=== PATIENT | male | born 1940 | race Caucasian/White ===

== ENCOUNTER → 2019-06-05 12:22 | Outpatient (CLI) | payer MEDICARE, SELFPAY ==
[2019-06-05 13:56] LABS: Absolute Neutrophil Count 6.8 X10^3/uL (2.0-7.7); Basophil# 0.07 X10^3/uL; Basophil% 0.8 % (0-1); Eosinophil# 0.19 X10^3/uL; Hemoglobin 12.1 g/dL (13.0-16.5); Lymphocyte % 15.1 % (19-41); Mean Corpuscular Hgb 30.1 pg (27.0-32.0); Mean Platelet Vol. 10.4 fl (6.2-12.0); Monocyte# 0.81 X10^3/uL; Monocyte% 8.7 % (0-10); NRBC Flagged by Analyzer 0 % (0-5); Neutrophil # 6.79 X10^3/uL (2.7-7.7); Neutrophil % 73.2 % (47-70); Platelet Count 245 K/mm3 (150-450); RBC Distribution Width CV 12.9 % (11.6-14.6); RBC Distribution Width SD 45.9 fl (35.1-43.9); Red Blood Count 4.02 M/mm3 (4.6-6.2); White Blood Count 9.3 K/mm3 (4.4-11.0)
[2019-06-05 14:18] LABS: ALB/GLOB Ratio 1.3 RATIO (0.9-2.4); AST(SGOT) 16 U/L (15-37); Alanine Aminotransfer ALT/SGPT 27 U/L (16-61); Albumin, Serum 3.9 g/dL (3.2-5.0); Alkaline Phosphatase 64 U/L (45-117); Anion Gap 5 (5-15); BUN 18 mg/dL (7-18); BUN/Creat Ratio 13.7 RATIO (10-20); Calcium,Total 8.7 mg/dL (8.5-10.1); Chloride 101 mmol/L (98-107); Creatinine, Serum 1.31 mg/dL (0.70-1.30); EST Glomerular Filtration Rate 56 mL/min (>60); Est Glom Filt Rate - Afr Amer 68 mL/min (>60); Globulin 3.1 g/dL (2.2-4.2); Glucose 107 mg/dL (74-106); Potassium 4.4 mmol/L (3.5-5.1); Sodium Level 136 mmol/L (136-145)
== END ==
PROVIDERS: Family Provider Family Medicine; PCP Family Medicine; Referring Provider Family Medicine; Visit Provider Family Medicine
DX: I10 Essential (primary) hypertension (principal); G31.83 Neurocognitive disorder with Lewy bodies
CPT/HCPCS: 36415; 80053; 85025

== ENCOUNTER → 2019-10-16 16:36 | Outpatient (CLI) | payer MEDICARE, SELFPAY ==
--- NOTE | 2019-10-16 16:39 | RAD_ITS ---
STUDY: X-RAY - ABDOMEN/PELVIS REASON FOR EXAM: Male, 79 years old. RLQ pain x 4-5 days TECHNIQUE: AP supine and upright views of the abdomen and pelvis. COMPARISON: None. FINDINGS: Normal visualized lung bases. Gas in multiple loops of small bowel in a nonspecific bowel gas pattern. There is no demonstrated free abdominal air. The visualized liver, spleen and kidneys are grossly normal in size and morphology. Normal soft tissue structures. Normal visualized osseous structures. RAD/Abd Inc Decub and/or Erect IMPRESSION: Nonspecific bowel gas pattern. No pneumoperitoneum. Electronically Signed: Jony Handy MD at 17:03 EDT Tel , Service support ,
[2019-10-16 18:35] LABS: ALB/GLOB Ratio 1.3 RATIO (0.9-2.4); AST(SGOT) 16 U/L (15-37); Alanine Aminotransfer ALT/SGPT 30 U/L (16-61); Albumin, Serum 4.1 g/dL (3.2-5.0); Alkaline Phosphatase 53 U/L (45-117); Anion Gap 6 (5-15); BUN 18 mg/dL (7-18); BUN/Creat Ratio 15.1 RATIO (10-20); Chloride 101 mmol/L (98-107); Creatinine, Serum 1.19 mg/dL (0.70-1.30); EST Glomerular Filtration Rate 63 mL/min (>60); Est Glom Filt Rate - Afr Amer 76 mL/min (>60); Globulin 3.2 g/dL (2.2-4.2); Glucose 102 mg/dL (74-106); Potassium 4.2 mmol/L (3.5-5.1); Protein, Total 7.3 g/dL (6.4-8.2); Sodium Level 133 mmol/L (136-145)
== END ==
PROVIDERS: PCP Family Medicine; Referring Provider Family Medicine; Visit Provider Family Medicine
DX: R10.11 Right upper quadrant pain (principal)
CPT/HCPCS: 36415; 74019; 80053

== ENCOUNTER → 2020-06-16 07:19 | Outpatient (CLI) | payer MEDICARE, SELFPAY ==
[2020-06-16 09:50] LABS: Absolute Lymphocyte Count 2.28 X10^3/uL (0.83-4.51); Absolute Neutrophil Count 5.3 X10^3/uL (2.0-7.7); Basophil# 0.07 X10^3/uL; Basophil% 0.8 % (0-1); Eosinophil# 0.35 X10^3/uL; Hematocrit 39.8 % (40-54); Hemoglobin 12.2 g/dL (13.0-16.5); Lymphocyte # 2.28 X10^3/ul (4.0); Lymphocyte % 25.8 % (19-41); Mean Corp Hgb Conc 30.7 g/dL (32-36); Mean Corpuscular Hgb 29.1 pg (27.0-32.0); Mean Platelet Vol. 9.9 fl (6.2-12.0); Monocyte# 0.86 X10^3/uL; Monocyte% 9.7 % (0-10); NRBC Flagged by Analyzer 0 % (0-5); Neutrophil # 5.25 X10^3/uL (2.7-7.7); Neutrophil % 59.4 % (47-70); Platelet Count 251 K/mm3 (150-450); RBC Distribution Width CV 13.2 % (11.6-14.6); RBC Distribution Width SD 45.7 fl (35.1-43.9); Red Blood Count 4.19 M/mm3 (4.6-6.2); White Blood Count 8.8 K/mm3 (4.4-11.0)
[2020-06-16 10:10] LABS: Vitamin D,25 Hydroxy 107.3 ng/mL
[2020-06-16 10:45] LABS: ALB/GLOB Ratio 1.2 RATIO (0.9-2.4); AST(SGOT) 13 U/L (15-37); Alanine Aminotransfer ALT/SGPT 30 U/L (16-61); Albumin, Serum 3.8 g/dL (3.2-5.0); Alkaline Phosphatase 83 U/L (45-117); Anion Gap 6 (5-15); BUN 20 mg/dL (7-18); BUN/Creat Ratio 16.8 RATIO (10-20); Calcium,Total 8.7 mg/dL (8.5-10.1); Chloride 104 mmol/L (98-107); Cholesterol 162 mg/dL (200); Creatinine, Serum 1.19 mg/dL (0.70-1.30); EST Glomerular Filtration Rate 63 mL/min (>60); Est Glom Filt Rate - Afr Amer 76 mL/min (>60); Globulin 3.2 g/dL (2.2-4.2); Glucose 101 mg/dL (74-106); High Density Lipoprotein 94 mg/dL; Potassium 4.2 mmol/L (3.5-5.1); Sodium Level 139 mmol/L (136-145); Triglycerides 31 mg/dL; Very Low Density Lipoprotein 6 mg/dL (5-40)
== END ==
PROVIDERS: PCP Family Medicine; Referring Provider Family Medicine; Visit Provider Family Medicine
DX: I10 Essential (primary) hypertension (principal); E55.9 Vitamin D deficiency, unspecified
CPT/HCPCS: 36415; 80053; 80061; 82306; 85025

== ENCOUNTER → 2020-07-21 09:50 | Outpatient (CLI) | payer MEDICARE, SELFPAY ==
[2020-07-21 12:45] LABS: Absolute Lymphocyte Count 2.21 X10^3/uL (0.83-4.51); Absolute Neutrophil Count 5.5 X10^3/uL (2.0-7.7); Basophil# 0.04 X10^3/uL; Basophil% 0.5 % (0-1); Eosinophil# 0.25 X10^3/uL; Eosinophils% 2.9 % (0-5); Hematocrit 38.6 % (40-54); Hemoglobin 11.6 g/dL (13.0-16.5); Lymphocyte # 2.21 X10^3/ul (4.0); Lymphocyte % 25.2 % (19-41); Mean Corp Hgb Conc 30.1 g/dL (32-36); Mean Corpuscular Hgb 28.9 pg (27.0-32.0); Mean Platelet Vol. 10.3 fl (6.2-12.0); Monocyte# 0.77 X10^3/uL; Monocyte% 8.8 % (0-10); NRBC Flagged by Analyzer 0 % (0-5); Neutrophil # 5.46 X10^3/uL (2.7-7.7); Neutrophil % 62.3 % (47-70); Platelet Count 246 K/mm3 (150-450); RBC Distribution Width CV 13.5 % (11.6-14.6); RBC Distribution Width SD 48.4 fl (35.1-43.9); Red Blood Count 4.02 M/mm3 (4.6-6.2); White Blood Count 8.8 K/mm3 (4.4-11.0)
[2020-07-21 13:53] LABS: ALB/GLOB Ratio 1.1 RATIO (0.9-2.4); AST(SGOT) 12 U/L (15-37); Alanine Aminotransfer ALT/SGPT 31 U/L (16-61); Albumin, Serum 3.6 g/dL (3.2-5.0); Alkaline Phosphatase 55 U/L (45-117); Anion Gap 7 (5-15); BUN 15 mg/dL (7-18); BUN/Creat Ratio 11.7 RATIO (10-20); Calcium,Total 8.9 mg/dL (8.5-10.1); Chloride 101 mmol/L (98-107); Creatinine, Serum 1.28 mg/dL (0.70-1.30); EST Glomerular Filtration Rate 58 mL/min (>60); Est Glom Filt Rate - Afr Amer 70 mL/min (>60); Globulin 3.4 g/dL (2.2-4.2); Glucose 107 mg/dL (74-106); PSA,Total- Diagnostic 3.05 ng/mL (0.0-4.0); Potassium 4.1 mmol/L (3.5-5.1); Sodium Level 137 mmol/L (136-145); Thyroid Stim Hormone (TSH) 2.31 uIU/mL (0.358-3.74)
== END ==
PROVIDERS: PCP Family Medicine; Visit Provider Family Medicine
DX: R53.83 Other fatigue (principal); R10.11 Right upper quadrant pain; R39.198 Other difficulties with micturition
CPT/HCPCS: 36415; 80053; 84153; 84443; 85025

== ENCOUNTER → 2020-08-21 15:15 | Outpatient (CLI) | payer MEDICARE, SELFPAY | PROVIDERS: PCP Family Medicine; Referring Provider Internal Medicine Gastroenterology; Visit Provider Internal Medicine Gastroenterology | DX: Z11.59 Encounter for screening for other viral diseases (principal) | CPT/HCPCS: 87635; C9803; U0005; U0003 ==

== ENCOUNTER → 2021-01-29 08:59 | Outpatient (CLI) | payer MEDICARE, SELFPAY ==
[2021-01-29 12:25] LABS: Absolute Neutrophil Count 4.4 X10^3/uL (2.0-7.7); Basophil# 0.05 X10^3/uL; Basophil% 0.7 % (0-1); Eosinophil# 0.14 X10^3/uL; Hematocrit 35.8 % (40-54); Hemoglobin 11.4 g/dL (13.0-16.5); Lymphocyte % 21.9 % (19-41); Mean Corp Hgb Conc 31.8 g/dL (32-36); Mean Corpuscular Hgb 29.2 pg (27.0-32.0); Mean Corpuscular Volume 91.6 fL (80-94); Mean Platelet Vol. 9.8 fl (6.2-12.0); Monocyte# 0.72 X10^3/uL; Monocyte% 10.5 % (0-10); NRBC Flagged by Analyzer 0 % (0-5); Neutrophil # 4.41 X10^3/uL (2.7-7.7); Neutrophil % 64.6 % (47-70); Platelet Count 298 K/mm3 (150-450); RBC Distribution Width CV 13.2 % (11.6-14.6); RBC Distribution Width SD 44.7 fl (35.1-43.9); Red Blood Count 3.91 M/mm3 (4.6-6.2); White Blood Count 6.8 K/mm3 (4.4-11.0)
[2021-01-29 12:55] LABS: ALB/GLOB Ratio 1.3 RATIO (0.9-2.4); AST(SGOT) 12 U/L (15-37); Alanine Aminotransfer ALT/SGPT 29 U/L (16-61); Albumin, Serum 3.9 g/dL (3.2-5.0); Alkaline Phosphatase 67 U/L (45-117); Anion Gap 8 (5-15); BUN 12 mg/dL (7-18); BUN/Creat Ratio 11.9 RATIO (10-20); Calcium,Total 9.2 mg/dL (8.5-10.1); Chloride 95 mmol/L (98-107); Cholesterol 179 mg/dL (200); Creatinine, Serum 1.01 mg/dL (0.70-1.30); EST Glomerular Filtration Rate 76 mL/min (>60); Est Glom Filt Rate - Afr Amer 92 mL/min (>60); Globulin 3.1 g/dL (2.2-4.2); Glucose 102 mg/dL (74-106); High Density Lipoprotein 99 mg/dL; PSA,Total- Diagnostic 2.25 ng/mL (0.0-4.0); Potassium 4.3 mmol/L (3.5-5.1); Sodium Level 132 mmol/L (136-145); Triglycerides 44 mg/dL; Very Low Density Lipoprotein 9 mg/dL (5-40)
== END ==
PROVIDERS: PCP Family Medicine; Referring Provider Family Medicine; Visit Provider Family Medicine
DX: I10 Essential (primary) hypertension (principal); K21.9 Gastro-esophageal reflux disease without esophagitis; N40.0 Benign prostatic hyperplasia without lower urinary tract symptoms; E87.1 Hypo-osmolality and hyponatremia
CPT/HCPCS: 36415; 80053; 80061; 84153; 85025

== ENCOUNTER → 2021-04-15 16:03 | Outpatient (CLI) | payer MEDICARE, SELFPAY ==
[2021-04-15 17:38] LABS: Hematocrit 34.7 % (40-54); Mean Corp Hgb Conc 31.7 g/dL (32-36); Mean Corpuscular Hgb 29.3 pg (27.0-32.0); Mean Corpuscular Volume 92.5 fL (80-94); Mean Platelet Vol. 9.9 fl (6.2-12.0); Platelet Count 286 K/mm3 (150-450); RBC Distribution Width CV 13.1 % (11.6-14.6); RBC Distribution Width SD 44.3 fl (35.1-43.9); Red Blood Count 3.75 M/mm3 (4.6-6.2); White Blood Count 11.1 K/mm3 (4.4-11.0)
== END ==
PROVIDERS: PCP Nurse Practitioner Family; Referring Provider Nurse Practitioner Family; Visit Provider Nurse Practitioner Family
DX: D64.9 Anemia, unspecified (principal)
CPT/HCPCS: 36415; 85027

== ENCOUNTER 2021-09-17 08:03 | Outpatient (CLI) | payer MEDICARE, SELFPAY ==
[2021-09-17 10:56] LABS: ALB/GLOB Ratio 1.1 RATIO (0.9-2.4); AST(SGOT) 18 U/L (15-37); Alanine Aminotransfer ALT/SGPT 30 U/L (16-61); Albumin, Serum 3.8 g/dL (3.2-5.0); Alkaline Phosphatase 81 U/L (45-117); Anion Gap 5 (5-15); BUN 21 mg/dL (7-18); BUN/Creat Ratio 18.8 RATIO (10-20); Calcium,Total 8.9 mg/dL (8.5-10.1); Chloride 99 mmol/L (98-107); Cholesterol 169 mg/dL (200); Creatinine, Serum 1.12 mg/dL (0.70-1.30); EST Glomerular Filtration Rate 67 mL/min (>60); Est Glom Filt Rate - Afr Amer 81 mL/min (>60); Globulin 3.5 g/dL (2.2-4.2); Glucose 105 mg/dL (74-106); High Density Lipoprotein 91 mg/dL; Potassium 4.1 mmol/L (3.5-5.1); Protein, Total 7.3 g/dL (6.4-8.2); Sodium Level 137 mmol/L (136-145); Triglycerides 39 mg/dL; Very Low Density Lipoprotein 8 mg/dL (5-40)
[2021-09-17 11:06] LABS: Microalbumin,Random Urine 5.1 mg/L (NO RANGE EST.); Microalbumin:Creatinine Ratio 5.4 mg/g CRE (<30 mg/g CRE)
== END 2021-09-17 23:59 | disposition home or self-care (01) ==
PROVIDERS: PCP Nurse Practitioner Family; Referring Provider Nurse Practitioner Family; Visit Provider Nurse Practitioner Family
DX: I10 Essential (primary) hypertension (principal); E78.00 Pure hypercholesterolemia, unspecified
CPT/HCPCS: 36415; 80053; 80061; 82043; 82570

== ENCOUNTER → 2021-11-03 | Outpatient (CLI) | payer MEDICARE, SELFPAY ==
--- NOTE | 2021-11-03 16:55 | RAD_ITS ---
STUDY: X-RAY CHEST REASON FOR EXAM: Male, 81 years old. COPD TECHNIQUE: PA and lateral views of the chest. COMPARISON: None. FINDINGS: There is hyperinflation of the lungs consistent with chronic obstructive lung disease (COPD). There is no demonstrated pleural abnormality. Normal size heart. Normal mediastinum and ezequiel. Normal visualized pulmonary arteries. Normal visualized aortic arch and descending thoracic aorta. Normal visualized thoracic spine. Normal visualized ribs, clavicles, and shoulders. There is no demonstrated abnormality of the visualized soft tissue structures of the upper abdomen. RAD/Chest PA and Lateral IMPRESSION: Emphysema without pneumonia or atelectasis. Electronically Signed: Jony Handy MD at 17:08 EDT ,
[2021-11-03 17:57] LABS: Absolute Lymphocyte Count 1.82 X10^3/uL (0.83-4.51); Absolute Neutrophil Count 5.2 X10^3/uL (2.0-7.7); Basophil# 0.06 X10^3/uL; Basophil% 0.7 % (0-1); Eosinophil# 0.16 X10^3/uL; Hematocrit 37.8 % (40-54); Hemoglobin 12.1 g/dL (13.0-16.5); Lymphocyte # 1.82 X10^3/ul (0.83-4.51); Lymphocyte % 22.3 % (19-41); Mean Corpuscular Hgb 28.2 pg (27.0-32.0); Mean Corpuscular Volume 88.1 fL (80-94); Mean Platelet Vol. 9.8 fl (6.2-12.0); Monocyte# 0.89 X10^3/uL; Monocyte% 10.9 % (0-10); NRBC Flagged by Analyzer 0 % (0-5); Neutrophil # 5.22 X10^3/uL (2.7-7.7); Neutrophil % 63.9 % (47-70); Platelet Count 236 K/mm3 (150-450); RBC Distribution Width CV 14.5 % (11.6-14.6); RBC Distribution Width SD 46.1 fl (35.1-43.9); Red Blood Count 4.29 M/mm3 (4.6-6.2); White Blood Count 8.2 K/mm3 (4.4-11.0)
== END | disposition home or self-care (01) ==
PROVIDERS: PCP Nurse Practitioner Family; Referring Provider Family Medicine; Visit Provider Family Medicine
DX: J44.1 Chronic obstructive pulmonary disease with (acute) exacerbation (principal)
CPT/HCPCS: 36415; 71046; 85025

== ENCOUNTER → 2021-12-07 | Outpatient (CLI) | payer MEDICARE, SELFPAY ==
[2021-12-07 17:44] LABS: Platelet Count 264 K/mm3 (150-450); RET-HE 33.5 pg (30-35); Reticulocyte Count 1.59 % (0.5-1.5)
[2021-12-07 18:41] LABS: Ferritin 14 ng/mL (26-388); Iron 72 ug/dL (65-175); Iron Binding Capacity,Total 360 ug/dL (250-450)
[2021-12-07 20:02] LABS: Vitamin B12 572 pg/mL (211-911)
== END | disposition home or self-care (01) ==
LOC: MFPLAB 16:05
PROVIDERS: PCP Nurse Practitioner Family; Visit Provider Family Medicine
DX: D64.9 Anemia, unspecified (principal)
CPT/HCPCS: 36415; 82607; 82728; 82746; 83540; 83550; 85045

== ENCOUNTER → 2022-10-19 | Outpatient (CLI) | payer MEDICARE, SELFPAY | END | disposition home or self-care (01) | PROVIDERS: PCP Nurse Practitioner Family; Referring Provider Internal Medicine; Visit Provider Internal Medicine | DX: G47.33 Obstructive sleep apnea (adult) (pediatric) (principal) | CPT/HCPCS: 95806 ==

== ENCOUNTER → 2022-10-21 | Outpatient (CLI) | payer MEDICARE, SELFPAY ==
[2022-10-21 17:56] LABS: Absolute Lymphocyte Count 2.03 X10^3/uL (0.83-4.51); Absolute Neutrophil Count 5.8 X10^3/uL (2.0-7.7); Basophil# 0.06 X10^3/uL; Basophil% 0.7 % (0-1); Eosinophil# 0.23 X10^3/uL; Eosinophils% 2.5 % (0-5); Hematocrit 37.4 % (40-54); Hemoglobin 11.9 g/dL (13.0-16.5); Lymphocyte # 2.03 X10^3/ul (0.83-4.51); Lymphocyte % 22.5 % (19-41); Mean Corp Hgb Conc 31.8 g/dL (32-36); Mean Corpuscular Hgb 31.2 pg (27.0-32.0); Mean Corpuscular Volume 98.2 fL (80-94); Mean Platelet Vol. 10.5 fl (6.2-12.0); Monocyte# 0.91 X10^3/uL; Monocyte% 10.1 % (0-10); NRBC Flagged by Analyzer 0 % (0-5); Neutrophil # 5.77 X10^3/uL (2.7-7.7); Neutrophil % 63.8 % (47-70); Platelet Count 273 K/mm3 (150-450); RBC Distribution Width CV 13.6 % (11.6-14.6); Red Blood Count 3.81 M/mm3 (4.6-6.2)
[2022-10-21 18:15] LABS: Vitamin B12 555 pg/mL (211-911); Vitamin D,25 Hydroxy 110.5 ng/mL
[2022-10-21 18:19] LABS: ALB/GLOB Ratio 1.2 RATIO (0.9-2.4); AST(SGOT) 17 U/L (15-37); Alanine Aminotransfer ALT/SGPT 31 U/L (16-61); Albumin, Serum 3.6 g/dL (3.2-5.0); Alkaline Phosphatase 59 U/L (45-117); Anion Gap 3 (5-15); BUN 22 mg/dL (7-18); BUN/Creat Ratio 19.3 RATIO (10-20); Calcium,Total 8.6 mg/dL (8.5-10.1); Chloride 100 mmol/L (98-107); Cholesterol 146 mg/dL (200); Creatinine, Serum 1.14 mg/dL (0.70-1.30); EST Glomerular Filtration Rate 66 mL/min (>60); Est Glom Filt Rate - Afr Amer 79 mL/min (>60); Glucose 99 mg/dL (74-106); High Density Lipoprotein 79 mg/dL; Potassium 4.4 mmol/L (3.5-5.1); Protein, Total 6.6 g/dL (6.4-8.2); Sodium Level 130 mmol/L (136-145); Triglycerides 74 mg/dL; Very Low Density Lipoprotein 15 mg/dL (5-40)
[2022-10-21 18:36] LABS: Microalbumin,Random Urine < 5.0 mg/L (NO RANGE EST.)
== END | disposition home or self-care (01) ==
LOC: MFPLAB 16:11
PROVIDERS: PCP Nurse Practitioner Family; Visit Provider Family Medicine
DX: D64.9 Anemia, unspecified (principal); I10 Essential (primary) hypertension; E78.00 Pure hypercholesterolemia, unspecified; K21.9 Gastro-esophageal reflux disease without esophagitis; E55.9 Vitamin D deficiency, unspecified
CPT/HCPCS: 36415; 80053; 80061; 82043; 82306; 82607; 85025

== ENCOUNTER → 2022-11-16 | Outpatient (CLI) | payer MEDICARE, SELFPAY ==
--- NOTE | 2022-11-16 13:38 | ECHOD_ITS ---
Reason For Study: HEART MURMUR Procedure This was a 2D Doppler, Color Flow transthoracic echocardiogram. Exam performed in department. Left Ventricle Normal LV size. Left ventricular systolic function is normal. The estimated ejection fraction is 70 %. No regional wall motion abnormalities noted. Right Ventricle Normal RV size. Normal systolic function. Atria The left atrium is mildly enlarged. Normal right atrium. Mitral Valve Normal mitral valve. Trivial mitral valve insufficiency. Tricuspid Valve Normal tricuspid valve. Mild to moderate (1-2+) tricuspid valve insufficiency. Pulmonary artery systolic pressure is 50 mmHg. Aortic Valve Trisinus/trileaflet aortic valve. Moderate focal aortic valve calcification. Peak aortic valve gradient 35 mmHg. Mean aortic valve gradient 20 mmHg. Mild to moderate aortic stenosis. Pulmonic Valve Normal pulmonic valve. Great Vessels Normal aortic root. The pulmonary artery is normal size. Normal inferior vena cava. Pericardium/Pleural No pericardial effusion. MMode/2D Measurements & Calculations LVIDd: 5.4 cm IVSd: 1.0 cm LVOT diam: 2.2 cm LVIDs: 3.8 cm LVPWd: 1.4 cm LVOT area: 3.8 cm2 RVDd: 4.2 cm FS: 28.7 % Ao root diam: 3.7 cm LAV(MOD-bp): 63.5 ml LVAd ap4: 32.7 cm2 LAV(MOD-bp) Indexed: 29.6 ml/m2 LVLd ap4: 8.7 cm LAV(MOD-sp2): 53.2 ml EDV(MOD-sp4): 101.8 ml LAV(MOD-sp4): 65.0 ml EDV(sp4-el): 104.4 ml LVAs ap4: 15.8 cm2 LVLs ap4: 7.5 cm ESV(MOD-sp4): 27.9 ml ESV(sp4-el): 28.0 ml EF(MOD-sp4): 72.6 % EF(sp4-el): 73.2 % SV(MOD-sp4): 73.9 ml SV(sp4-el): 76.4 ml LA A4 area: 24.6 cm2 LA dimension(2D): 4.8 cm RA A4 area: 18.5 cm2 Time Measurements MV dec time: 0.17 sec Doppler Measurements & Calculations MV E max luis: 86.5 cm/sec Lat Peak E' Luis: 10.2 cm/sec Med Peak E' Luis: 7.2 cm/sec MV A max luis: 69.4 cm/sec E/E' lat: 8.5 E/E' med: 12.1 MV E/A: 1.2 MV V2 max: 98.5 cm/sec Ao V2 max: 297.6 cm/sec MV max P.9 mmHg MV dec slope: 507.4 cm/sec2 Ao max P.4 mmHg MV V2 mean: 55.8 cm/sec Ao V2 mean: 208.8 cm/sec MV mean P.4 mmHg Ao mean P.9 mmHg MV V2 VTI: 32.3 cm Ao V2 VTI: 75.0 cm AV (velocity ratio): 0.45 MVA(VTI): 4.0 cm2 ALBERTO(I,D): 1.7 cm2 ALBERTO(V,D): 1.5 cm2 LV V1 max: 115.7 cm/sec SV(LVOT): 129.5 ml PA V2 max: 96.5 cm/sec LV V1 max P.4 mmHg PA V2 mean: 69.0 cm/sec LV V1 mean P.3 mmHg LV V1 mean: 86.3 cm/sec LV V1 VTI: 34.0 cm TR max luis: 342.5 cm/sec TR max P.9 mmHg ECHO/Echo Complete Interpretation Summary Normal LV size. Left ventricular systolic function is normal. The estimated ejection fraction is 70 %. Moderate focal aortic valve calcification. Mean aortic valve gradient 20 mmHg. The left atrium is mildly enlarged. Mild to moderate aortic stenosis. Ordering Physician: Rosio Woodard Referring Physician: Rosio Woodard Performed By: Ignacia Johnson RCS
== END | disposition home or self-care (01) ==
LOC: CVS 13:37
PROVIDERS: PCP Nurse Practitioner Family; Referring Provider Family Medicine; Visit Provider Family Medicine
DX: R01.1 Cardiac murmur, unspecified (principal)
CPT/HCPCS: 93306

== ENCOUNTER → 2023-03-15 | Outpatient (CLI) | payer MEDICARE, SELFPAY ==
[2023-03-15 12:19] LABS: Absolute Lymphocyte Count 1.44 X10^3/uL (0.83-4.51); Absolute Neutrophil Count 5.8 X10^3/uL (2.0-7.7); Basophil# 0.07 X10^3/uL; Basophil% 0.9 % (0-1); Eosinophil# 0.13 X10^3/uL; Eosinophils% 1.6 % (0-5); Hematocrit 39.8 % (40-54); Hemoglobin 12.4 g/dL (13.0-16.5); Lymphocyte # 1.44 X10^3/ul (0.83-4.51); Lymphocyte % 17.8 % (19-41); Mean Corp Hgb Conc 31.2 g/dL (32-36); Mean Corpuscular Hgb 31.3 pg (27.0-32.0); Mean Corpuscular Volume 100.5 fL (80-94); Monocyte# 0.63 X10^3/uL; Monocyte% 7.8 % (0-10); NRBC Flagged by Analyzer 0 % (0-5); Neutrophil # 5.81 X10^3/uL (2.7-7.7); Neutrophil % 71.5 % (47-70); Platelet Count 248 K/mm3 (150-450); RBC Distribution Width CV 12.6 % (11.6-14.6); RBC Distribution Width SD 46.6 fl (35.1-43.9); RET-HE 34.3 pg (30-35); Red Blood Count 3.96 M/mm3 (4.6-6.2); Reticulocyte Count 2.05 % (0.5-1.5); White Blood Count 8.1 K/mm3 (4.4-11.0)
[2023-03-15 12:37] LABS: ALB/GLOB Ratio 1.2 RATIO (0.9-2.4); AST(SGOT) 17 U/L (15-37); Alanine Aminotransfer ALT/SGPT 33 U/L (16-61); Albumin, Serum 3.8 g/dL (3.2-5.0); Alkaline Phosphatase 68 U/L (45-117); Anion Gap 5 (5-15); BUN 11 mg/dL (7-18); Calcium,Total 9.1 mg/dL (8.5-10.1); Chloride 101 mmol/L (98-107); EST Glomerular Filtration Rate 68 mL/min (>60); Est Glom Filt Rate - Afr Amer 83 mL/min (>60); Ferritin 67 ng/mL (26-388); Globulin 3.2 g/dL (2.2-4.2); Glucose 112 mg/dL (74-106); Potassium 4.5 mmol/L (3.5-5.1); Sodium Level 137 mmol/L (136-145)
== END | disposition home or self-care (01) ==
LOC: MTLAB 10:00
PROVIDERS: PCP Family Medicine; Referring Provider Family Medicine; Visit Provider Family Medicine
DX: D64.9 Anemia, unspecified (principal); E87.1 Hypo-osmolality and hyponatremia
CPT/HCPCS: 36415; 80053; 82728; 85025; 85045

== ENCOUNTER 2023-10-06 16:22 | Outpatient (CLI) | payer MEDICARE, SELFPAY ==
[2023-10-06 17:52] LABS: Absolute Lymphocyte Count 1.96 X10^3/uL (0.83-4.51); Basophil# 0.07 X10^3/uL; Basophil% 0.9 % (0-1); Eosinophil# 0.27 X10^3/uL; Eosinophils% 3.3 % (0-5); Hematocrit 37.5 % (40-54); Hemoglobin 11.9 g/dL (13.0-16.5); Lymphocyte # 1.96 X10^3/ul (0.83-4.51); Mean Corp Hgb Conc 31.7 g/dL (32-36); Mean Corpuscular Hgb 30.4 pg (27.0-32.0); Mean Corpuscular Volume 95.9 fL (80-94); Mean Platelet Vol. 10.1 fl (6.2-12.0); Monocyte# 0.86 X10^3/uL; Monocyte% 10.6 % (0-10); NRBC Flagged by Analyzer 0 % (0-5); Neutrophil # 4.96 X10^3/uL (2.7-7.7); Neutrophil % 60.8 % (47-70); Platelet Count 251 K/mm3 (150-450); RBC Distribution Width CV 13.2 % (11.6-14.6); RBC Distribution Width SD 46.7 fl (35.1-43.9); Red Blood Count 3.91 M/mm3 (4.6-6.2); White Blood Count 8.2 K/mm3 (4.4-11.0)
[2023-10-06 18:42] LABS: ALB/GLOB Ratio 1.2 RATIO (0.9-2.4); AST(SGOT) 14 U/L (15-37); Alanine Aminotransfer ALT/SGPT 29 U/L (16-61); Albumin, Serum 3.8 g/dL (3.2-5.0); Alkaline Phosphatase 60 U/L (45-117); Anion Gap 5 (5-15); BUN 19 mg/dL (7-18); BUN/Creat Ratio 16.2 RATIO (10-20); Calcium,Total 8.9 mg/dL (8.5-10.1); Chloride 99 mmol/L (98-107); Cholesterol 186 mg/dL (200); Creatinine, Serum 1.17 mg/dL (0.70-1.30); EST Glomerular Filtration Rate 63 mL/min (>60); Est Glom Filt Rate - Afr Amer 77 mL/min (>60); Globulin 3.2 g/dL (2.2-4.2); Glucose 101 mg/dL (74-106); High Density Lipoprotein 98 mg/dL; Potassium 4.7 mmol/L (3.5-5.1); Sodium Level 133 mmol/L (136-145); Thyroid Stim Hormone (TSH) 1.88 uIU/mL (0.358-3.74); Triglycerides 52 mg/dL; Very Low Density Lipoprotein 10 mg/dL (5-40)
== END 2023-10-06 23:59 | disposition home or self-care (01) ==
LOC: MFPLAB 16:22
PROVIDERS: PCP Family Medicine; Visit Provider Family Medicine
DX: R09.02 Hypoxemia (principal); D64.9 Anemia, unspecified
CPT/HCPCS: 36415; 80053; 80061; 84443; 85025

== ENCOUNTER 2023-10-27 10:51 | Day surgery (SDC) | payer MEDICARE, SELFPAY ==
--- NOTE | 2023-10-27 | IMM_PTH ---
PATIENT: LOREN LEAVITT LOC: [facility] U#:[id number] AGE/SX: 83/M ROOM: RE10/27/[address]: Dr. Nancy Iniguez MD : 1940 BED: DIS: 10/27/2023 SPEC #: [id number] RECD: 10/31/23 11:19 STATUS: BETZY REQ #: [id number] VICTOR M: 10/27/23 00:[address]: Nancy Iniguez DEPT: IMMUNOHISTOCHEMISTRY RECD BY: Adam Delgado ENTERED: 10/31/23 11:21 SP TYPE: IMMUNO OTHR DR: Baltazar Westbrook MD Tissues: Scalp, NOS Procedures: CK5-6 (add) KI-67 (add) P53 (add) MELAN-A (add) P40 (add) Vimentin (initial) S-100 (add) PHYSICIAN & INSTITUTION [place] [address] SPECIMEN INFORMATION: Tissue Source: Neoplasm of left anterior scalp Clinical Info: Neoplasm of uncertain behavior of scalp Specimen Number: [id number] CPT code: 25045,14406l9 METHODOLOGY: Deparaffinized sections of prefer/formalin-fixed tissue or PAP/DQ stained slides are incubated with monoclonal/polyclonal antibodies/oligonucleotide probes. Localization is made via biotin free immunoperoxidase method. Appropriate controls are performed and reacted as expected. Results on target cell population are indicated in the following table: RESULTS: ANTIBODY / CLONE RESULT Block 1 Vimentin (V9) positive Melan A (A103) positive S-100 (4C4.9) negative CK5-6 (D5 & 1684) negative P40 (BC28) negative P53 (DO-7) negative (null pattern) Ki-67 (30-9) positive, moderate These tests were developed and their performance characteristics determined by [facility]. They may not have been cleared or approved by the U.S. Food and Drug Administration. The FDA has determined that such clearance or approval is not necessary. The above immunohistochemical/dualISH markers are ordered and reviewed by the Pathologist. INTERPRETATION: Left anterior scalp lesion, excision: Malignant melanoma. See comment. BARRY/ 11/11/2023 COMMENT: The specimen is sent to [facility] for expert opinion, reviewed by Dr. Bell and the above diagnosis is rendered. The complete report is viewable in the patient's EMR.
[2023-10-27 11:27] VITALS: BP 128/57; PULSE 63; RESP 18; TEMP 37; O2SAT 91; BMI 28.4
--- NOTE | 2023-10-27 12:15 | PCM.HP.BLA ---
History and Physical Date of Admission: 10/27/23 The patient is examined and there are no changes to the H&P dated 10/18/2023. He presents with a neoplasm of his left anterior scalp which will be partially excised to obtain a diagnosis prior to definitive treatment. Informed consent was obtained. Assessment & Plan Assessment/Plan (1) Neoplasm of uncertain behavior of scalp: PLAN: Plan For partial excision neoplasm of scalp for diagnosis.
[2023-10-27 12:33] VITALS: BP 102/88; BP 138/65; O2SAT 100; O2SAT 93; O2SAT 94; O2SAT 97
--- NOTE | 2023-10-27 13:00 | LES_PTH ---
PATIENT: LOREN LEAVITT LOC: [facility] [place] U#:[id number] AGE/SX: 83/M ROOM: RE10/27/[address]: Dr. Nancy Iniguez MD : 1940 BED: DIS: 10/27/2023 SPEC #: [id number] RECD: 10/27/23 13:55 STATUS: BETZY MIRANDA #: [id number] VICTOR M: 10/27/23 13:[address]: Nancy Iniguez DEPT: SURGICAL PATHOLOGY RECD BY: Mari Olivarez ENTERED: 10/28/23 10:05 SP TYPE: Lesion OTHR DR: Baltazar Westbrook MD Tissues: Skin of scalp, NOS Procedures: [facility] Consultation (on slides) Surgery Specimen Level IV HEADER OPERATION: Excision lesion scalp 3cm PRE-OP DIAGNOSIS: Neoplasm of uncertain behavior of scalp TISSUE SUBMITTED: Neoplasm of left anterior scalp MICROSCOPIC DIAGNOSIS Left anterior scalp lesion, excisional biopsy: Malignant melanoma. See cancer summary in the comment section. SJ/mr 11/11/2023 COMMENT CANCER SUMMARY: Histologic type: Nodular Breslow thickness: 4.2mm Ulceration: Present Mitoses/mm: >10mm Tumor infiltrating lymphocytes: Present, non-brisk Regression: Present Perineurial invasion: Absent Vascular invasion: Absent Satellite nodule: Absent Margin status: Lateral: Positive Deep: Negative The specimen is sent to [facility] for expert opinion, reviewed by Dr. Bell and the above diagnosis is rendered. The complete report is viewable in the patient's EMR. Immunohistochemistry ([id number]) supports the above diagnosis. Case has been reviewed in consultation with Dr. Fritz who concurs with the above diagnosis. IDC:AM MICROSCOPIC DESCRIPTION Slides are reviewed. GROSS DESCRIPTION Received in fixative is one container labeled with the patient's name and designated Neoplasm of left anterior scalp. The specimen consists of an unoriented ellipse of light crum skin measuring 4.3 x 1.6 and a depth of excision measuring 0.5cm. The cutaneous surface contains a firm plaque like white-crum lesion measuring 1.3 x 1.0 x 0.2cm. The specimen is inked, serially sectioned and submitted entirely in two cassettes. AM/mr 10/28/23 TC:0 CPT:20259
[2023-10-27] MEDS: Bacitracin 500 UNITS/GM PACKET (13:20)
[2023-10-27] MEDS: Lidocaine 1% /Epi 1:100 9 ML, Sodium Bicarbonate 1 MEQ OPERA.SITE (13:25)
--- NOTE | 2023-10-27 13:34 | DCINST_ITS ---
Discharge Instructions Dressing / Incision Additional Dressing/Incision Instructions:: Keep your back elevated (recliner position) for the next 4-5 days to prevent swelling and bleeding. Take the oral antibiotic (Keflex) 2 x a day until finished. May shower over the area but do not scrub. Apply a thin layer of antibiotic ointment (like neosporin, bacitracin, or triple antibiotic ointment) once a day to the site. Follow Up Care Please Follow Up With: Nancy Iniguez MD When: in 1 week Test Results: Test results from this visit will be discussed in further detail at your follow- up appointment, if applicable. Discharge Plan Admission Attending Provider: Nancy Iniguez Primary Care Provider: Baltazar Westbrook Discharge Orders/Prescriptions Prescriptions: New cephalexin 500 mg capsule 500 mg PO BID 7 Days Qty: 14 0RF No Action albuterol sulfate 90 mcg/actuation HFA aerosol inhaler 2 puff inhalation Q6H PRN (Reason: wheezing) atorvastatin [Lipitor] 80 mg tablet 80 mg PO DAILY losartan 100 mg tablet 100 mg PO DAILY donepezil 10 mg tablet 10 mg PO DAILY celecoxib 100 mg capsule 100 mg PO DAILY metoclopramide HCl 5 mg tablet 5 mg PO QACHS fluticasone propion-salmeterol 250-50 mcg/dose blister with device 1 inh inhalation BID esomeprazole magnesium 40 mg capsule,delayed release(DR/EC) 40 mg PO DAILY memantine 10 mg tablet 10 mg PO BID gabapentin 100 mg capsule 100 mg PO BID diltiazem HCl [DILT-XR] 180 mg capsule,ext.rel 24h degradable 180 mg PO DAILY doxazosin 4 mg tablet 4 mg PO DAILY buspirone 5 mg tablet 5 mg PO BID cholecalciferol (vitamin D3) 125 mcg (5,000 unit) capsule 125 mcg PO QWEEK dicyclomine 20 mg tablet 20 mg PO TID PRN (Reason: cramps) sucralfate 1 gram tablet 1 g PO TID azelastine 205.5 mcg (0.15 %) spray,non-aerosol 1 spray intranasal BID Rx Instructions: administer into each nostril famotidine 40 mg tablet 40 mg PO DAILY magnesium oxide 400 mg magnesium capsule 400 mg PO DAILY ferrous sulfate [Feosol] 325 mg (65 mg iron) tablet 325 mg PO DAILY ascorbate calcium (vitamin C) 500 mg tablet 500 mg PO DAILY multivitamin Tablet 1 tab PO DAILY guaifenesin [Mucinex] 600 mg tablet extended release 12hr 600 mg PO Q12H melatonin 1 mg tablet 1 mg PO HS PRN (Reason: sleep aid) omega 0-dkx-ddn-fish oil [Fish Oil] 1,200 (144-216) mg capsule PO DAILY aspirin 81 mg tablet,chewable 81 mg PO DAILY multivitamin [Daily Multi-Vitamin] Tablet 1 tab PO DAILY montelukast 10 mg tablet 10 mg PO DAILY Referrals / Follow Up: Baltazar Westbrook MD [Primary Care Provider] - Disposition Disposition (needs filled in before D/C Order can be placed): Home, Self Care
--- NOTE | 2023-10-27 13:40 | PCM.OPRPT ---
Problems Associated Problem List Diagnoses (1) Neoplasm of uncertain behavior of scalp: Report of Operation Date of Procedure: 10/27/23 Pre-Operative Diagnosis: Neoplasm of uncertain behavior of left anterior scalp Post-Operative Diagnosis: Same Surgery/Procedure Performed:: Partial excision neoplasm scalp for biopsy (6.0 cm) Surgeon: Nancy Iniguez Type of Anesthesia: Local Specimen's removed: Partial excision neoplasm scalp Estimated Blood Loss (mL): 10 cc Description of Procedure: Patient presents with a several month history of a neoplasm of his scalp. He states he first became aware of this in April last year. The patient has long dense hair on his scalp which prevented clear visualization of the neoplasm. Because of the size of the neoplasm, we will proceed with a partial excision for with submission for pathologic evaluation. He is aware that further surgery will likely be needed. The patient's has trim some of the hair over top of the neoplasm which reveals this to be even larger than was initially suspected. Patient was brought to the operating room and placed on the operating room table in the supine position. The scalp was prepped and draped in the usual sterile fashion. We initially began with designing an elliptical and excision around a prominent nodule of the neoplasm edge. 1% Xylocaine with epinephrine buffered with sodium bicarb is injected. Following this, we proceeded with excision of the area. Moderate amount of bleeding is encountered and a fixation suture of Vicryl was used to control this. The specimen is passed off the operative field to be sent to pathology. The wound is closed initially with interrupted silk suture. Following this, running chromic suture is used to approximate the skin edge. The area is cleaned with peroxide. Antibiotic ointment is applied. He tolerated the procedure well was taken to the recovery area in an awake and stable condition. Needle and sponge counts are correct. Complications None Admit VTE Documentation VTE Mechan Device Prophylaxis: None Reason prophylaxis not ordered:: Treatment Not Indicated
== END 2023-10-27 13:59 | disposition home or self-care (01) ==
LOC: SDC 10:58 → AC 11:00
PROVIDERS: PCP Family Medicine; Visit Provider Plastic Surgery
PROC: (CPT 11626; principal; 2023-10-27 12:45)
DX: C43.4 Malignant melanoma of scalp and neck (principal)
CPT/HCPCS: 11626; 88305; 88325; 88341; 88342

== ENCOUNTER 2023-12-08 09:40 | Day surgery (SDC) | payer MEDICARE, SELFPAY ==
--- NOTE | 2023-12-08 | IMM_PTH ---
PATIENT: LOREN LEAVITT LOC: [facility] [place] U#:[id number] AGE/SX: 83/M ROOM: RE12/08/[address]: Dr. Nancy Iniguez MD : 1940 BED: DIS: 12/08/2023 SPEC #: [id number] RECD: 12/09/23 12:03 STATUS: BETZY REQ #: [id number] VICTOR M: 12/08/23 00:[address]: Nancy Iniguez DEPT: IMMUNOHISTOCHEMISTRY RECD BY: Adam Delgado ENTERED: 12/09/23 12:05 SP TYPE: IMMUNO OTHR DR: Baltazar Westbrook MD Tissues: A - Skin of back, NOS B - Skin of back, NOS C - Skin of arm Procedures: CD31 (add) CK5-6 (add) KI-67 (add) P53 (add) FACTOR VIII (add) Pankeratin (initial) Pankeratin (add) MELAN-A (add) P40 (add) S-100 (add) PHYSICIAN & [address] [address] SPECIMEN INFORMATION: Tissue Source: A- Lower back lesion, B- Upper back lesion, C- Right shoulder lesion Clinical Info: Neoplasm of uncertain behavior of connective and other soft tissue, neoplasm of uncertain behavior of skin of back Specimen Number: [id number] A, B, C CPT code: 28159t2,69390y16 METHODOLOGY: Deparaffinized sections of prefer/formalin-fixed tissue or PAP/DQ stained slides are incubated with monoclonal/polyclonal antibodies/oligonucleotide probes. Localization is made via biotin free immunoperoxidase method. Appropriate controls are performed and reacted as expected. Results on target cell population are indicated in the following table: RESULTS: ANTIBODY / CLONE RESULT Block A AE1-3 (AE1/AE3/PCK26) negative CD31 (ABEL/70A) negative Factor VIII (R Ag) negative Melan A (A103) positive S-100 (4C4.9) positive CK5-6 (D5 & 1684) negative P40 (BC28) negative P53 (DO-7) negative, wild type pattern Ki-67 (30-9) positive, 15% Block B AE1-3 (AE1/AE3/PCK26) negative CD31 (ABEL/70A) negative Factor VIII (R Ag) negative Melan A (A103) positive S-100 (4C4.9) positive CK5-6 (D5 & 1684) negative P40 (BC28) negative P53 (DO-7) positive, wild type Ki-67 (30-9) positive, 20% Block C AE1-3 (AE1/AE3/PCK26) negative CD31 (ABEL/70A) negative Factor VIII (R Ag) negative Melan A (A103) positive S-100 (4C4.9) positive CK5-6 (D5 & 1684) negative P40 (BC28) negative P53 (DO-7) positive, wild type Ki-67 (30-9) positive, 5% These tests were developed and their performance characteristics determined by [facility]. They may not have been cleared or approved by the U.S. Food and Drug Administration. The FDA has determined that such clearance or approval is not necessary. The above immunohistochemical/dualISH markers are ordered by Dr. Larry Fritz and reviewed by the Pathologist by Dr. Larry Fritz. INTERPRETATION: A. Skin lesion of lower back, excision: Malignant melanoma. See comment. B. Skin lesion of upper back, excision: Malignant melanoma. See comment. C. Skin lesion of right shoulder, excision: Malignant melanoma. See comment. AM/mr 12/12/2023 The specimens are sent to [facility] for expert opinion and reviewed by Dr. Larry Harris and above diagnosis is rendered.
[2023-12-08 10:00] VITALS: BP 139/82; PULSE 64; RESP 16; TEMP 36.1; O2SAT 98; BMI 28.7
--- NOTE | 2023-12-08 11:15 | LES_PTH ---
PATIENT: LOREN LEAVITT LOC: [facility] [place] U#:[id number] AGE/SX: 83/M ROOM: RE12/08/[address]: Dr. Nancy Iniguez MD : 1940 BED: DIS: 12/08/2023 SPEC #: [id number] RECD: 12/08/23 13:26 STATUS: BETZY MIRANDA #: [id number] VICTOR M: 12/08/23 11:[address]: Nancy Iniguez DEPT: SURGICAL PATHOLOGY RECD BY: Radha Scott ENTERED: 12/08/23 13:50 SP TYPE: Lesion OTHR DR: Baltazar Westbrook MD Tissues: A - Skin of back, NOS B - Skin of back, NOS C - Skin of upper extremity and shoulder Procedures: Surgery Specimen Level IV HEADER OPERATION: Excision lesions back x2 (2.5, 1.5) excision subcutaneous PRE-OP DIAGNOSIS: Neoplasm of uncertain behavior of connective and other soft tissue, Neoplasm of uncertain behavior of skin of back TISSUE SUBMITTED: A- Lower back lesion-recent history of melanoma, B- Upper back lesion- recent history of melanoma , C- Right shoulder lesion MICROSCOPIC DIAGNOSIS A. Skin lesion of lower back, biopsy: Malignant melanoma. See comment. B. Skin lesion of upper back, biopsy: Malignant melanoma. See comment. C. Lesion of right shoulder, biopsy: Malignant melanoma present predominantly in the subcutis. See comment. AM/mr 12/09/2023 /mr 01/10/2024 COMMENT A. Immunohistochemistry ([id number]) supports the above diagnosis. The specimen is sent to [facility] for expert opinion, reviewed by Dr. Bell and commented that he favors a metastatic lesion over primary nodular melanoma of 2.4mm in thickness, given the previous history (S2) left anterior scalp lesion, excisional biopsy with diagnosis of malignant melanoma.. Lesion shows overlying ulceration and mitoses of 8/mm2. Inked margins are free at the planes of section examined. The complete report is viewable in the patient's EMR. B. Immunohistochemistry ([id number]) supports the above diagnosis. The specimen is sent to [facility] for expert opinion, reviewed by Dr. Bell and he commented the lesion appears to be arising in association with an intradermal nevus. A primary malignant melanoma of 0.7mm cannot be entirely excluded. No evidence of ulceration, perineural or perivascular invasion is identified. Occasional mitotic figures are identified (1/mm2) inked margins are free at the planes of section examined. The complete report is viewable in the patient's EMR. C. Immunohistochemistry ([id number]) supports the above diagnosis. [facility], reviewed by Dr. Bell and the above diagnosis is rendered. Dr. Bell commented that findings most compatible with a metastatic melanoma. Lesion measures 7.0mm in thickness as well as maximum dimension, measured microscopically. KI67 reveal an increase in proliferation index. The complete report is viewable in the patient's EMR. Case has been reviewed in consultation with Dr. Lala who concurs with the above diagnosis. IDC:AM MICROSCOPIC DESCRIPTION Slides are reviewed. GROSS DESCRIPTION A. Received in fixative is one container labeled with the patient's name and designated Lower back lesion. The specimen consists of a crum white skin ellipse measuring 2.0 x 1.1 cm and up to 0.4cm in thickness. There is a raised brown lesion on the surface measuring 1.0 x 1.0cm. The specimen is inked, serially sectioned and submitted entirely in one cassette. B. Received in fixative is one container labeled with the patient's name and designated Upper back lesion. The specimen consists of a crum white skin ellipse measuring 1.0 x 0.5cm and up to 0.3cm in thickness. There is a dark brown round lesion on the surface measuring 0.3cm in diameter. The specimen is inked, serially sectioned and submitted entirely in one cassette. C. Received in fixative is one container labeled with the patient's name and designated Right shoulder lesion. The specimen consists of a crum white skin ellipse measuring 1.7 x 0.7cm and up to 0.8cm in thickness. The dark brown lesion in the deeper tissue measuring 0.6cm in greatest dimension. The specimen is inked, serially section and submitted entirely in one cassette. BARRY/ 12/08/2023 TC:0 CPT:15056d9
--- NOTE | 2023-12-08 11:17 | PCM.HP.BLA ---
History and Physical Date of Admission: 12/08/23 The patient is examined and there are no changes to the H&P dated 12/07/2023. He presents for excisional biopsy of several lesions of his back. Informed consent was obtained prior to proceeding. Assessment & Plan Assessment/Plan (1) Neoplasm of uncertain behavior of connective and other soft tissue: (2) Neoplasm of uncertain behavior of skin of back: PLAN: Plan Patient for excision lesions of the back to establish diagnosis.
[2023-12-08 11:38] VITALS: BP 155/101; O2SAT 100
[2023-12-08] MEDS: Lidocaine 1% /Epi 1:100 9 ML, Sodium Bicarbonate 1 MEQ OPERA.SITE (12:06)
[2023-12-08] MEDS: Bacitracin 500 UNITS/GM PACKET (12:46)
--- NOTE | 2023-12-08 12:52 | EX.PCM.DISCH ---
Discharge Instructions Dressing / Incision Additional Dressing/Incision Instructions:: Change the dressings on the back daily. Apply a thin layer of antibiotic ointment to the sites. Leave the dressing intact on the right shoulder. If it should fall off, replace it with a Band-Aid. Take the oral antibiotic (Keflex) 2 times a day until finished. Follow Up Care Please Follow Up With: Nancy Iniguez MD When: In 1 to 2 weeks Test Results: Test results from this visit will be discussed in further detail at your follow-up appointment, if applicable. Discharge Plan Admission Attending Provider: Nancy Iniguez Primary Care Provider: Baltazar Westbrook Instructions Print Language: Bruneian Discharge Orders/Prescriptions Prescriptions: New cephalexin 500 mg capsule 500 mg PO BID 7 Days Qty: 14 0RF No Action albuterol sulfate 90 mcg/actuation HFA aerosol inhaler 2 puff inhalation Q6H PRN (Reason: wheezing) atorvastatin [Lipitor] 80 mg tablet 80 mg PO DAILY losartan 100 mg tablet 100 mg PO DAILY donepezil 10 mg tablet 10 mg PO DAILY celecoxib 100 mg capsule 100 mg PO DAILY metoclopramide HCl 5 mg tablet 5 mg PO QACHS fluticasone propion-salmeterol 250-50 mcg/dose blister with device 1 inh inhalation BID esomeprazole magnesium 40 mg capsule,delayed release(DR/EC) 40 mg PO DAILY memantine 10 mg tablet 10 mg PO BID gabapentin 100 mg capsule 100 mg PO BID diltiazem HCl [DILT-XR] 180 mg capsule,ext.rel 24h degradable 180 mg PO DAILY doxazosin 4 mg tablet 4 mg PO DAILY buspirone 5 mg tablet 5 mg PO BID cholecalciferol (vitamin D3) 125 mcg (5,000 unit) capsule 125 mcg PO QWEEK dicyclomine 20 mg tablet 20 mg PO TID PRN (Reason: cramps) sucralfate 1 gram tablet 1 g PO TID azelastine 205.5 mcg (0.15 %) spray,non-aerosol 1 spray intranasal BID Rx Instructions: administer into each nostril famotidine 40 mg tablet 40 mg PO DAILY magnesium oxide 400 mg magnesium capsule 400 mg PO DAILY ferrous sulfate [Feosol] 325 mg (65 mg iron) tablet 325 mg PO DAILY ascorbate calcium (vitamin C) 500 mg tablet 500 mg PO DAILY multivitamin Tablet 1 tab PO DAILY guaifenesin [Mucinex] 600 mg tablet extended release 12hr 600 mg PO Q12H melatonin 1 mg tablet 1 mg PO HS PRN (Reason: sleep aid) omega 5-jwo-fof-fish oil [Fish Oil] 1,200 (144-216) mg capsule 1 cap PO DAILY aspirin 81 mg tablet,chewable 81 mg PO DAILY multivitamin [Daily Multi-Vitamin] Tablet 1 tab PO DAILY montelukast 10 mg tablet 10 mg PO DAILY Referrals / Follow Up: Baltazar Westbrook MD [Primary Care Provider] - Disposition Disposition (needs filled in before D/C Order can be placed): Home, Self Care
--- NOTE | 2023-12-08 12:54 | OP.PCM_ITS ---
Problems Associated Problem List Diagnoses (1) Malignant melanoma: (2) Neoplasm of uncertain behavior of connective and other soft tissue: (3) Neoplasm of uncertain behavior of skin of back: Report of Operation Date of Procedure: 12/08/23 Pre-Operative Diagnosis: Pigmented lesions of the skin of back x 2, subcutaneous nodule right shoulder; recent diagnosis of malignant melanoma scalp Post-Operative Diagnosis: Same Surgery/Procedure Performed:: Excision lesion of lower back (3.0 cm) with intermediate closure; excision lesion upper back (1.5 cm); excision subcutaneous nodule right shoulder (2.5 cm) Surgeon: Nancy Iniguez Type of Anesthesia: Local Specimen's removed: As above Estimated Blood Loss (mL): Minimal Description of Procedure: The patient presents today for excisional biopsy of some lesions of his back and shoulder. He has a recent history of a malignant melanoma of his scalp. He was seen at the [facility] where biopsy of new lesions of his back were identified and biopsy requested. The patient is brought to the operating room and placed on the operating room table in a left lateral decubitus position. The back and right shoulder are prepped and draped in the usual sterile fashion. 1% Xylocaine with epinephrine buffered with sodium bicarb was used for local anesthetic. Following this, we excised the ulcerated lesion of the lower back. This was passed off the operative field. Hemostasis is controlled with cautery. The incision is then closed in layers using Vicryl suture in the subcutaneous tissue and dermis. Skin edges are approximated with a running chromic suture. We then directed our attention to the lesion of the upper back. After this is anesthetized with 1% Xylocaine with epinephrine, it is excised and passed off the operative field to be sent to pathology. Hemostasis is controlled with cautery. The incisions then closed with a running chromic suture. The sites are dressed with antibiotic ointment and Band-Aids. The site on the right shoulder was anesthetized with 1% Xylocaine with epinephrine. The skin incision is carried down through the subcutaneous tissue until the pigmented nodule is identified. It is carefully enucleated from its bed. Hemostasis is controlled with cautery. The incisions then closed with Lalo ryl suture in the subcutaneous tissue and dermis followed by a running chromic to approximate skin edges. This area is then dressed with a Tegaderm. He tolerated the procedure well was taken to the recovery area in an awake and stable condition. Needle and sponge counts are correct. Complications None Admit VTE Documentation VTE Mechan Device Prophylaxis: None Reason prophylaxis not ordered:: Treatment Not Indicated
[2023-12-08 12:59] VITALS: BP 158/68; PULSE 59; RESP 16; TEMP 36.6; O2SAT 99
== END 2023-12-08 13:16 | disposition home or self-care (01) ==
LOC: SDC 09:41 → AC 10:10
PROVIDERS: PCP Family Medicine; Referring Provider Plastic Surgery; Visit Provider Plastic Surgery
PROC: (CPT 11406; principal; 2023-12-08 11:00)
DX: D48.5 Neoplasm of uncertain behavior of skin (principal); C43.4 Malignant melanoma of scalp and neck; Z79.82 Long term (current) use of aspirin; Z79.51 Long term (current) use of inhaled steroids; Z79.899 Other long term (current) drug therapy
CPT/HCPCS: 11406; 12032; 88305; 88341; 88342

== ENCOUNTER 2024-07-23 12:08 | Emergency (ER) | payer MEDICARE, SELFPAY ==
[2024-07-23 12:08] VITALS: BP 161/80; PULSE 59; RESP 20; TEMP 36.5; O2SAT 100
[2024-07-23 12:12] VITALS: BMI 29.7
[2024-07-23 12:27] VITALS: O2SAT 100
--- NOTE | 2024-07-23 12:28 | EKG12_ITS ---
Test Reason : SOB Blood Pressure : */* mmHG Vent. Rate : 63 BPM Atrial Rate : * BPM P-R Int : * ms QRS Dur : 126 ms QT Int : 396 ms P-R-T Axes : * -62 43 degrees QTcB Int : 405 ms Baseline artifact, likely Sinus Rhythm Left axis deviation Non-specific intra-ventricular conduction block Cannot rule out Septal infarct , age undetermined Abnormal ECG Confirmed by TRACY AVENDAÑO, MUNIR ([id number]), editorial manager DONNELL HOOD ([id number]) on 07/25/2024 6:22:56 AM Referred By: Justice Pascal Confirmed By: MUNIR MOLINA MD
[2024-07-23 13:04] LABS: Absolute Lymphocyte Count 1.17 X10^3/uL (0.83-4.51); Absolute Neutrophil Count 3.8 X10^3/uL (2.0-7.7); Basophil# 0.06 X10^3/uL; Eosinophils% 3.4 % (0-5); Hematocrit 26.8 % (40-54); Hemoglobin 8.5 g/dL (13.0-16.5); Lymphocyte # 1.17 X10^3/ul (0.83-4.51); Lymphocyte % 19.8 % (19-41); Mean Corp Hgb Conc 31.7 g/dL (32-36); Mean Corpuscular Hgb 29.6 pg (27.0-32.0); Mean Corpuscular Volume 93.4 fL (80-94); Mean Platelet Vol. 9.2 fl (6.2-12.0); Monocyte# 0.69 X10^3/uL; Monocyte% 11.7 % (0-10); NRBC Flagged by Analyzer 0 % (0-5); Neutrophil # 3.76 X10^3/uL (2.7-7.7); Neutrophil % 63.6 % (47-70); Platelet Count 186 K/mm3 (150-450); RBC Distribution Width CV 13.8 % (11.6-14.6); RBC Distribution Width SD 47.1 fl (35.1-43.9); Red Blood Count 2.87 M/mm3 (4.6-6.2); White Blood Count 5.9 K/mm3 (4.4-11.0)
--- NOTE | 2024-07-23 13:06 | RAD_ITS ---
INDICATION: Hypoxia with ambulation, tachypnea EXAMINATION/TECHNIQUE: X-RAY - XR Chest 2 Views COMPARISON: Prior study dated: 11/03/2021 FINDINGS: LINES/DEVICES: None. LUNGS: Subsegmental atelectatic changes in the lung bases. No evidence of pleural effusions. MEDIASTINUM AND CARDIOVASCULAR STRUCTURES: Cardiac silhouette not enlarged. Central airways and mediastinal contour are unremarkable. BONES AND SOFT TISSUES: Unremarkable. RAD/Chest PA and Lateral IMPRESSION: Subsegmental atelectatic changes in lung bases. Electronically Signed: Patrice Machado MD at 13:29 EST ,
[2024-07-23 13:20] LABS: ALB/GLOB Ratio 1.2 RATIO (0.9-2.4); AST(SGOT) 28 U/L (15-37); Alanine Aminotransfer ALT/SGPT 29 U/L (16-61); Albumin, Serum 3.4 g/dL (3.2-5.0); Alkaline Phosphatase 56 U/L (45-117); Anion Gap 4 (5-15); BUN 19 mg/dL (7-18); BUN/Creat Ratio 15.2 RATIO (10-20); Calcium,Total 8.7 mg/dL (8.5-10.1); Chloride 94 mmol/L (98-107); Creatinine, Serum 1.25 mg/dL (0.70-1.30); EST Glomerular Filtration Rate 59 mL/min (>60); Est Glom Filt Rate - Afr Amer 71 mL/min (>60); Estimated Creatinine Clearance 55.68 ml/min; Globulin 2.9 g/dL (2.2-4.2); Glucose 101 mg/dL (74-106); Potassium 4.3 mmol/L (3.5-5.1); Protein, Total 6.3 g/dL (6.4-8.2); Sodium Level 130 mmol/L (136-145)
[2024-07-23 13:27] LABS: Lactic Acid 0.9 mmol/L (0.4-1.9)
--- NOTE | 2024-07-23 13:37 | ED.VIS.DYS ---
HPI History of Present Illness Chief Complaint: Shortness of Breath Detail of Chief Complaint: Pulse ox 56% walking at Dr. Schwartz office. Informant: patient, spouse/S.O. and PCP Onset/Context/Timing Onset: - (Uncertain.) Context: - (Dyspnea and dyspnea on exertion increasing over the past month) Timing: Continuous and Waxes and wanes Quality: Positive for Dyspnea on exertion and Wheezing; Negative for Orthopnea or PND Current Severity: Mild Maximum Severity: Severe Worsened by: Exertion Relieved by: Nothing Associated Symptoms cough; Negative for rhinorrhea, post nasal drip, ear pain, fever, sore throat, subjective, chills, sweats, clear sputum, white sputum, yellow sputum or green sputum Chest Pain: Positive for None Narrative Narrative: Patient is an 83-year-old male. He has metastatic malignant melanoma involving the skin, brain, heart, lungs who presents from Dr. Westbrook's office because his pulse ox was 56% when he was walking out of the examination room. Patient denies orthopnea. He denies PND. He does report edema of his legs. His last echo was several months ago. The echo discovered the metastatic lesion to the pericardium. He denies history of PE or DVT. He denies fever, chills. He has had occasional sweats. He does report weight loss. He does have history of COPD on oxygen by nasal cannula 2 to 4 L. He is presently on 4 L. PE Risk Factors: Positive for Cancer; Negative for OCP + Smoking + > 35, Prior DVT or PE, Recent immobilization, Recent surgery or Recent travel Prior similar symptoms: No Recent Illness/Hospitalization: Yes [facility] Medical History History of ankle fracture History of dementia H/O non anemic vitamin B12 deficiency H/O gastric ulcer H/O gastroesophageal reflux (GERD) History of osteoarthritis H/O irritable bowel syndrome History of high cholesterol H/O: hypertension H/O gastrointestinal disease History of COPD H/O chronic bronchitis H/O arthritis History of anemia History of seasonal allergies TYRA on CPAP Home Medications ?Medication ?Instructions ?Recorded ?Last Taken ?Type ascorbate calcium (vitamin C) 500 500 mg PO DAILY 09/17/22 10/27/23 History mg tablet aspirin 81 mg chewable tablet 81 mg PO DAILY 09/17/22 10/27/23 History atorvastatin 80 mg tablet (Lipitor) 80 mg PO DAILY 09/17/22 10/26/23 History azelastine 205.5 mcg (0.15 %) 1 spray intranasal BID 09/17/22 10/27/23 History nasal spray buspirone 5 mg tablet 5 mg PO BID 09/17/22 10/27/23 History celecoxib 100 mg capsule 100 mg PO DAILY 09/17/22 10/27/23 History cholecalciferol (vitamin D3) 125 125 mcg PO QWEEK 09/17/22 10/26/23 History mcg (5,000 unit) capsule dicyclomine 20 mg tablet 20 mg PO TID PRN cramps 09/17/22 Unknown History diltiazem HCl 180 mg 180 mg PO DAILY 09/17/22 10/27/23 History capsule,extended release 24 hr, controlled (DILT-XR) donepezil 10 mg tablet 10 mg PO DAILY 09/17/22 10/27/23 History doxazosin 4 mg tablet 4 mg PO DAILY 09/17/22 10/27/23 History esomeprazole magnesium 40 mg 40 mg PO DAILY 09/17/22 10/27/23 History capsule,delayed release famotidine 40 mg tablet 40 mg PO DAILY 09/17/22 10/26/23 History ferrous sulfate 325 mg (65 mg 325 mg PO DAILY 09/17/22 10/27/23 History iron) tablet (Feosol) fluticasone 250 mcg-salmeterol 50 1 inh inhalation BID 09/17/22 Unknown History mcg/dose blistr powdr for inhalation gabapentin 100 mg capsule 100 mg PO BID 09/17/22 10/27/23 History guaifenesin 600 mg tablet, 600 mg PO Q12H 09/17/22 Unknown History extended release 12 hr (Mucinex) losartan 100 mg tablet 100 mg PO DAILY 09/17/22 10/27/23 History magnesium oxide 400 mg PO DAILY 09/17/22 10/27/23 History melatonin 1 mg tablet 1 mg PO HS PRN sleep aid 09/17/22 10/26/23 History memantine 10 mg tablet 10 mg PO BID 09/17/22 10/26/23 History metoclopramide HCl 5 mg tablet 5 mg PO QACHS 09/17/22 10/27/23 History multivitamin 1 tab PO DAILY 09/17/22 10/27/23 History omega 6-vtg-sej-fish oil 1,200 mg 1 cap PO DAILY 09/17/22 10/27/23 History (144 mg-216 mg) capsule (Fish Oil) sucralfate 1 gram tablet 1 g PO TID 09/17/22 10/26/23 History albuterol sulfate 90 mcg/actuation 2 puff inhalation Q6H PRN wheezing 09/27/22 Unknown History aerosol inhaler multivitamin (Daily Multi-Vitamin 1 tab PO DAILY 10/18/23 10/27/23 History tablet) montelukast 10 mg tablet 10 mg PO DAILY 10/27/23 10/26/23 History cephalexin 500 mg capsule 500 mg PO BID 7 days #14 caps 12/08/23 Unknown Rx cephalexin 500 mg capsule 500 mg PO BID #14 caps 12/20/23 Unknown Rx Allergy/AdvReac Type Severity Reaction Status Date / Time No Known Allergies Allergy Verified 07/23/24 12:12 Family History Sister Cancer Mother Psychiatric care Father Cancer skin cancer Grandfather Cancer skin cancer Surgical History History of ankle surgery History of resection of stomach Social History Smoking Status: Former smoker how long ago did patient quit smoking: quit 7-8 years ago alcohol intake: never additional social history: pt denies vaping, denies marijuana use, denies illegal drugs, denies alcohol, takes aspirin daily takes ibuprofen as needed. ROS ROS ED Constitutional Constitutional ED: Reports weight loss; Denies chills, fever(s) or sweats Eyes Eyes: Denies blurry vision or change in vision ENT ENT ED: Denies ear pain, rhinorrhea or sore throat Cardiovascular Cardiovascular: Denies chest pain, orthopnea, palpitations, paroxysmal nocturnal dyspnea or racing heartbeat Respiratory/Chest Respiratory/Chest: Reports cough, dyspnea, dyspnea on exertion and other Details: Cough is chronic. ; Denies orthopnea, paroxysmal nocturnal dyspnea or sputum Gastrointestinal Gastrointestinal: Denies abdominal pain, diarrhea, melena, nausea or vomiting Genitourinary Genitourinary ED: Denies dysuria, hematuria or urinary frequency Musculoskeletal Musculoskeletal: Denies arthralgias or myalgias Integumentary Denies rash Neurologic Neurologic: Reports weakness; Denies headache(s) or paresthesias Endocrine Endocrinology: Reports cold intolerance and heat intolerance Hematologic/Lymphatic Hematologic/Lymphatic: Denies easy bleeding or easy bruising EXAM Physical Exam Const Vital Signs: 07/23/24 12:08 07/23/24 12:27 07/23/24 14:36 Temperature 97.7 F L Temperature Source Oral Pulse Rate 59 L 69 Respiratory Rate 20 H 18 Respiratory Effort Normal Respiratory Depth Normal Respiratory Pattern Normal Blood Pressure 161/80 H 167/77 H Blood Pressure Mean 107 107 Pulse Ox 100 97 Oxygen Delivery Method Nasal Cannula Nasal Cannula Oxygen Flow Rate (L/min) 4 4 07/23/24 14:36 Temperature 98.4 F Temperature Source Oral Pulse Rate 69 Respiratory Rate 18 Respiratory Effort Respiratory Depth Respiratory Pattern Blood Pressure 167/77 H Blood Pressure Mean 107 Pulse Ox 97 Oxygen Delivery Method Oxygen Flow Rate (L/min) Positive well nourished and well developed General Appearance ED: well developed, NAD and pallor HEENT Reports moist mucous membranes HEENT Narrative: Patient has poor dentition. Head is atraumatic normocephalic. Ears normal. Uvula midline. No deviation with protrusion. Eyes PERRL and EOMs intact bilaterally Eyes Narrative: There is no nystagmus. General Eye ED: Yes pale conjunctiva; Negative for scleral icterus Neck no lymphadenopathy, supple, no meningeal signs and no JVD Resp normal respiratory effort and No clear to auscultation bilaterally Auscultation: rales bilateral lower; Negative for rhonchi, wheezes or diminished lung sounds Cardio regular rate, regular rhythm, S1 normal heart sound, S2 normal heart sound and no murmurs GI non-tender, non-distended and no masses Auscultation: normoactive bowel sounds Palpation: soft Back/Spine no CVA tenderness Extremity Extremity Narrative: There is no discoloration, asymmetry, leg vein distention, palpable cords or tenderness on the distribution of the deep venous system. General Extremety ED: Yes edema; Negative for tenderness General Extremity: edema Neuro oriented x3, CN's II-XII intact bilaterally and no sensory deficits noted [place] Coma Scale: document GCS findings Spontaneous Obeys Commands Oriented 15 Sensorium / Orientation: alert Psych mental status grossly normal Skin no wounds and skin turgor normal General Skin Exam: pallor; Negative for jaundice MDM MDM MDM Narrative Medical decision making narrative: This could possibly represent pneumonia, doubt pneumothorax since he has symmetric breath sounds, exacerbation of COPD, pulmonary embolus, this also could represent pericardial effusion with impaired cardiac output due to metastatic lesion to the pericardium per prior echo at [facility]. He does appear pale. This could be due to anemia. Would explain his dyspnea and [place] exertion but would not expect him to desaturate since his hemoglobin is above 6 since he still has erythema in the creases of his palms. History & Record Review Additional record(s) reviewed:: Prior outpatient record, Prior ED visit and Prior labs Lab Data Attestation: I reviewed the patient's lab results. Lab results narrative: CBC reveals H&H 8.5 and 26.8. Most recent H&H on record is October 06, 2023 and H&H at that time was 11.9 and 37.5. February 2023 H&H was 12.4 and 39.8. Comprehensive metabolic panel is normal. Lactate is normal. The anemia may be a cause of his dyspnea however would not expect his pulse ox to go to 56%. Labs: Laboratory Results - last 24 hr 07/23/24 12:57 WBC 5.9 RBC 2.87 L Hgb 8.5 L Hct 26.8 L MCV 93.4 MCH 29.6 MCHC 31.7 L RDW Std Deviation 47.1 H RDW Coeff of Rodolfo 13.8 Plt Count 186 MPV 9.2 Immature Gran % (Auto) 0.500 Neut % (Auto) 63.6 Lymph % (Auto) 19.8 [place] % (Auto) 11.7 H Eos % (Auto) 3.4 Baso % (Auto) 1.0 Absolute Neuts (auto) 3.8 Absolute Lymphs (auto) 1.17 Nucleated RBC % 0 Sodium 130 L Potassium 4.3 Chloride 94 L Carbon Dioxide 32.0 Anion Gap 4 L BUN 19 H Creatinine 1.25 Estim Creat Clear Calc 55.68 Est GFR (MDRD) Af Amer 71 Est GFR (MDRD) Non-Af 59 L BUN/Creatinine Ratio 15.2 Glucose 101 Lactic Acid 0.9 Calcium 8.7 Total Bilirubin 0.30 AST 28 ALT 29 Alkaline Phosphatase 56 Total Protein 6.3 L Albumin 3.4 Globulin 2.9 Albumin/Globulin Ratio 1.2 Radiography Chest X-Ray - ED: 2 View and Read by ED Physician (Patient has bilateral atelectatic changes right and left lower lung which is new from chest x-ray that was performed on November 03, 2021.) Diagnostic Testing: Clinical Impression(s) from Imaging Studies Chest X-Ray 07/23/24 13:06 IMPRESSION: Subsegmental atelectatic changes in lung bases. Electronically Signed: Patrice Machado MD at 13:29 EST , Chest CTA 07/23/24 13:41 IMPRESSION: 1. No evidence of pulmonary embolism or aortic dissection. 2. Small pericardial effusion. 3. Atelectatic changes lung bases. No focal consolidation. 4. Partially visualized calcified left renal cyst for which further evaluation with nonemergent CT scan of the abdomen without and with contrast is recommended. Electronically Signed: Patrice Machado MD at 14:36 EST , The body of the CTA report was reviewed. The impressions were read/reviewed. Since there is no evidence of pulmonary embolus, infiltrate, significant cannot pericardial effusion or pleural effusion patient's hypoxia is due to his end-stage COPD and will need to increase his oxygen with activity. EKG Initial EKG: Attestation: I personally reviewed and interpreted this EKG as follows: Interpretation: - (I believe patient has a sinus rhythm with an intraventricular conduction delay. There is artifact which makes it difficult to interpret. I believe there are T wave seen in V3. TN interval is prolonged and would indicate a first-degree AV block. QRS duration is prolonged at 126 ms. QT duration 3) Treatment and Re-Evaluation :: Patient does not have cardiomegaly or boot-shaped heart that would raise concern for pericardial effusion and possible tamponade. Need to entertain possibility of PE since patient has metastatic melanoma. He is on immunotherapy and due for dose this coming July. He [facility] at [facility]. Since patient has normal renal function will obtain CTA of the chest which will also evaluate the heart to see if there is any evidence of effusion. There is a significant effusion we will obtain echocardiogram especially if there is no evidence of PE or explanation for patient's hypoxia with minimal activity. Patient and were informed of results. Apparently no one has spoken to patient about life support/innovation. Patient was informed he has significant COPD and if he becomes ill he may require life support and something he should consider and expressed his wishes to his doctor. Discharge Plan Triage Chief Complaint: Shortness of Breath ED Provider: Justice Pascal Dx/Rx/DC Orders Clinical Impression: Acute and chronic respiratory failure ([id number]), Metastatic malignant melanoma, Bipolar 1 disorder, TYRA on CPAP, End stage chronic obstructive pulmonary disease Instructions: Chest and Lung Problems Prescriptions: No Action albuterol sulfate 90 mcg/actuation HFA aerosol inhaler 2 puff inhalation Q6H PRN (Reason: wheezing) atorvastatin [Lipitor] 80 mg tablet 80 mg PO DAILY losartan 100 mg tablet 100 mg PO DAILY donepezil 10 mg tablet 10 mg PO DAILY celecoxib 100 mg capsule 100 mg PO DAILY metoclopramide HCl 5 mg tablet 5 mg PO QACHS fluticasone propion-salmeterol 250-50 mcg/dose blister with device 1 inh inhalation BID esomeprazole magnesium 40 mg capsule,delayed release(DR/EC) 40 mg PO DAILY memantine 10 mg tablet 10 mg PO BID gabapentin 100 mg capsule 100 mg PO BID diltiazem HCl [DILT-XR] 180 mg capsule,ext.rel 24h degradable 180 mg PO DAILY doxazosin 4 mg tablet 4 mg PO DAILY buspirone 5 mg tablet 5 mg PO BID cholecalciferol (vitamin D3) 125 mcg (5,000 unit) capsule 125 mcg PO QWEEK dicyclomine 20 mg tablet 20 mg PO TID PRN (Reason: cramps) sucralfate 1 gram tablet 1 g PO TID azelastine 205.5 mcg (0.15 %) spray,non-aerosol 1 spray intranasal BID Rx Instructions: administer into each nostril famotidine 40 mg tablet 40 mg PO DAILY magnesium oxide 400 mg magnesium capsule 400 mg PO DAILY ferrous sulfate [Feosol] 325 mg (65 mg iron) tablet 325 mg PO DAILY ascorbate calcium (vitamin C) 500 mg tablet 500 mg PO DAILY multivitamin Tablet 1 tab PO DAILY guaifenesin [Mucinex] 600 mg tablet extended release 12hr 600 mg PO Q12H melatonin 1 mg tablet 1 mg PO HS PRN (Reason: sleep aid) omega 4-kmg-btm-fish oil [Fish Oil] 1,200 (144-216) mg capsule 1 cap PO DAILY aspirin 81 mg tablet,chewable 81 mg PO DAILY multivitamin [Daily Multi-Vitamin] Tablet 1 tab PO DAILY cephalexin 500 mg capsule 500 mg PO BID Qty: 14 0RF cephalexin 500 mg capsule 500 mg PO BID 7 Days Qty: 14 0RF montelukast 10 mg tablet 10 mg PO DAILY Primary Care Provider: Baltazar Westbrook Referrals: Baltazar Westbrook MD [Primary Care Provider] - As Needed Print Language: Urdu Disposition Disposition: Home, Self Care
--- NOTE | 2024-07-23 13:41 | CT_ITS ---
STUDY: CTA CHEST REASON FOR EXAM: Male, 83 years old. Hypoxia, dyspnea on exertion, metastatic melanoma RADIATION DOSAGE (If Supplied By Facility): CTDIvol = ( 14.16 ) mGy, DLP = ( 475.00 ) mGycm TECHNIQUE: The examination was performed with the intravenous administration of IV 100mL Isovue-370. Post-processing of the angiographic images was performed, with multiplanar reformation and 3D reconstruction. The protocol utilizes one or more of the following dose reduction techniques: automated exposure control, adjustment of mA and/or kV according to patient size,and/or use of iterative reconstruction technique. COMPARISON: No relevant prior comparison study available FINDINGS: Normal enhancement of the main pulmonary artery and right and left pulmonary arteries. Normal enhancement of the bilateral peripheral pulmonary arteries. There is no demonstrated pulmonary embolism. Atherosclerotic calcifications of the thoracic aorta without evidence of aneurysm. There is no demonstrated aortic dissection. Normal heart size. Small pericardial effusion. There are calcifications of the coronary arteries. Normal mediastinum. Normal hilar regions. Normal visualized trachea and bronchi. The lungs are well expanded. There are no pulmonary infiltrates. Small bilateral pleural effusions. There are no pleural effusions. Normal chest wall structures. No demonstrated acute osseous changes. Surgical clips in the gastroesophageal junction region. Partially visualized calcified left renal cyst measuring about 5.[address]/CTA Chest W/WO Contrast IMPRESSION: 1. No evidence of pulmonary embolism or aortic dissection. 2. Small pericardial effusion. 3. Atelectatic changes lung bases. No focal consolidation. 4. Partially visualized calcified left renal cyst for which further evaluation with nonemergent CT scan of the abdomen without and with contrast is recommended. Electronically Signed: Patrice Machado MD at 14:36 EST ,
[2024-07-23 14:36] VITALS: BP 167/77; PULSE 69; RESP 18; TEMP 36.9; O2SAT 97
[2024-07-23 15:05] VITALS: BP 157/88; PULSE 76; RESP 18; TEMP 36.6; O2SAT 95
== END 2024-07-23 15:05 | disposition home or self-care (01) ==
PROVIDERS: Emergency Provider Emergency Medicine; PCP Family Medicine; Referring Provider Emergency Medicine; Visit Provider Emergency Medicine
DX: J96.20 Acute and chronic respiratory failure, unspecified whether with hypoxia or hypercapnia (principal); C79.2 Secondary malignant neoplasm of skin; F31.9 Bipolar disorder, unspecified; J44.9 Chronic obstructive pulmonary disease, unspecified; I10 Essential (primary) hypertension; E78.00 Pure hypercholesterolemia, unspecified; G47.33 Obstructive sleep apnea (adult) (pediatric); Z87.891 Personal history of nicotine dependence; Z99.81 Dependence on supplemental oxygen; K21.9 Gastro-esophageal reflux disease without esophagitis
CPT/HCPCS: 71046; 71275; 80053; 83605; 85025; 93005; 99284; Q9967

== ENCOUNTER → 2024-09-11 | Outpatient (CLI) | payer MEDICARE, SELFPAY ==
[2024-09-11 15:01] LABS: Absolute Lymphocyte Count 0.65 X10^3/uL (0.83-4.51); Absolute Neutrophil Count 11.9 X10^3/uL (2.0-7.7); Basophil# 0.01 X10^3/uL; Basophil% 0.1 % (0-1); Eosinophil# 0.05 X10^3/uL; Eosinophils% 0.4 % (0-5); Hematocrit 30.8 % (40-54); Hemoglobin 9.5 g/dL (13.0-16.5); Lymphocyte # 0.65 X10^3/ul (0.83-4.51); Lymphocyte % 4.9 % (19-41); Mean Corp Hgb Conc 30.8 g/dL (32-36); Mean Corpuscular Hgb 30.2 pg (27.0-32.0); Mean Corpuscular Volume 97.8 fL (80-94); Mean Platelet Vol. 9.6 fl (6.2-12.0); Monocyte# 0.67 X10^3/uL; NRBC Flagged by Analyzer 0 % (0-5); Neutrophil # 11.87 X10^3/uL (2.7-7.7); Platelet Count 167 K/mm3 (150-450); RBC Distribution Width CV 15.2 % (11.6-14.6); RBC Distribution Width SD 54.5 fl (35.1-43.9); Red Blood Count 3.15 M/mm3 (4.6-6.2); White Blood Count 13.3 K/mm3 (4.4-11.0)
[2024-09-11 15:38] LABS: PSA,Total - Annual Screen 0.35 ng/mL (0.02-4.00)
== END | disposition home or self-care (01) ==
LOC: MFPLAB 12:23
PROVIDERS: PCP Family Medicine; Referring Provider Family Medicine; Visit Provider Family Medicine
DX: Z12.5 Encounter for screening for malignant neoplasm of prostate (principal)
CPT/HCPCS: 36415; 84153; 85025; G0103